=== PATIENT | female | born 1970 | race Two or more races ===

== ENCOUNTER 2020-02-24 00:02 | Emergency (ER) | payer OTHER ==
[~2020-02-24] VITALS: Ht 152.4 cm; Wt 77.1 kg
[2020-02-24] MEDS ORDERED: KETO10TA2 PO (07:57)
[2020-02-24] MEDS ORDERED: CIPRO500 MG PO (07:57)
== END 2020-02-24 08:06 | disposition home or self-care (01) ==
LOC: ER 00:02 → EDSEX 00:11 → ER 00:11
DX: N20.1 Calculus of ureter (principal); N28.1 Cyst of kidney, acquired; R10.32 Left lower quadrant pain